=== PATIENT | female | born 1960 | race Caucasian/White ===

== ENCOUNTER 2016-09-18 21:28 | Outpatient (CLI) | payer MEDICAID | END 2016-09-18 21:29 | disposition critical access hospital (66) | DX: R07.9 Chest pain, unspecified (principal) | CPT/HCPCS: A0425; A0427 ==

== ENCOUNTER 2016-09-18 21:49 | Emergency (ER) | payer MEDICAID | END 2016-09-19 02:12 | disposition home or self-care (01) | DX: R07.9 Chest pain, unspecified (principal); J44.9 Chronic obstructive pulmonary disease, unspecified; J45.909 Unspecified asthma, uncomplicated; I10 Essential (primary) hypertension; K21.9 Gastro-esophageal reflux disease without esophagitis; G40.909 Epilepsy, unspecified, not intractable, without status epilepticus; F17.200 Nicotine dependence, unspecified, uncomplicated ==

== ENCOUNTER 2016-11-21 23:06 | Outpatient (CLI) | payer MEDICAID | END 2016-11-21 23:07 | disposition critical access hospital (66) | LOC: EMS 23:06 | PROVIDERS: ATTEND Surgery | DX: R52 Pain, unspecified (principal) | CPT/HCPCS: A0425; A0429 ==

== ENCOUNTER 2016-11-21 23:24 | Emergency (ER) | payer MEDICAID ==
--- NOTE | 2016-11-21 23:45 | ED Physician Documentation ---
PD HPI MHE - Stated complaint Stated Complaint: SI - Chief complaint Chief Complaint: MHE - History obtained from History obtained from: Patient - History of Present Illness Primary symptom: Suicidal ideation, Suicide attempt (she had tied a sheet up to half-way bar and was putting her head into the loop when noticed by gambling dealer and stopped. She did not actually get suspended hanging per patient. She is not sure is she still feels suicidal. She had been picked up on a warrant and was just in half-way starting today. She denies alcohol nor drugs. She says she has been taking her usual medications except for Prilosec that she ran out of.) Timing - onset: How many minutes ago (30), Today Contributing factors: Legal (was arrested on a warrant today and has a court appearance tomorrow. She lives in a long term and has been having poor social interactions.), Other (she says also tired of chronic neck and back pains.). No : Substance abuse - ETOH, Substance abuse - drugs Similar symptoms before: Diagnosis (suicidal ideation often, but not had attempts/actions for couple of years (2014 ED visit for attempting to hang herself with a sheet per old records).) Recently seen: Clinic (she says she sees counselor at [facility] regularly but had been few weeks since last visit.) Review of Systems Constitutional: denies: Fever Nose: denies: Rhinorrhea / runny nose, Congestion Throat: denies: Sore throat Cardiac: denies: Chest pain / pressure Respiratory: denies: Dyspnea, Cough GI: reports: Abdominal Pain (intermittent heart burn and gassiness.). denies: Vomiting, Diarrhea, Bloody / black stool Skin: denies: Abrasion (s), Laceration (s) Musculoskeletal: reports: Neck pain (chronic) Neurologic: reports: Headache (having headache today and has complaint of chronic neck pain.). denies: Focal weakness, Numbness, Altered mental status, LOC Psychiatric: reports: Depressed, Suicidal. denies: Homicidal, Hallucinations, Delusions, Anxiety Endocrine: denies: Weight loss Immunocompromised: denies: Immunocompromised PD PAST MEDICAL HISTORY - Past Medical History Cardiovascular: Hypertension Respiratory: Asthma Neuro: Headache/migraine, Seizure disorder Endocrine/Autoimmune: None GI: GERD MECHANIC FIELD SERVICE: None : None HEENT: None Psych: Depression, Anxiety, Post traumatic stress disorder Musculoskeletal: Chronic back pain Derm: None - Past Surgical History Past Surgical History: Yes /MECHANIC FIELD SERVICE: Tubal ligation HEENT: Tonsil/Adenoidectomy - Present Medications Home Medications: Ambulatory Orders Medication Instructions Recorded Confirmed Mirtazapine 45 mg PO HS 10/20/12 11/18/15 lamoTRIgine [LaMICtal] 100 mg PO DAILY 10/20/12 11/18/15 Hydroxyzine HCl 50 mg PO TID PRN 04/24/15 11/18/15 clonazePAM [KlonoPIN] 1 mg PO QPM 04/26/15 11/18/15 HYDROcod/ACETAM 5/325 [[place] 5/325] 1 - 2 ea PO Q6H PRN #10 tablet 11/18/15 Omeprazole 40 mg PO DAILY 11/18/15 11/18/15 carBAMazepine [TEGretol] 200 mg PO BID 11/18/15 11/18/15 - Allergies Allergies/Adverse Reactions: Allergies Allergy/AdvReac Type Severity Reaction Status Date / Time lithium [[place]] Allergy Mild Rash Verified 11/21/16 23:29 Penicillins Allergy Mild Rash Verified 11/21/16 23:29 codeine Allergy Unknown Verified 11/21/16 23:29 - Social History Does the pt smoke?: Yes Smoking Status: Current every day smoker Does the pt drink ETOH?: No Does the pt have substance abuse?: Yes - Immunizations Immunizations are current?: No - POLST Patient has POLST: No PD ED PE NORMAL - Vitals Vital signs reviewed: Yes - General General: Alert and oriented X 3, Well developed/nourished - HEENT HEENT: Atraumatic, PERRL (very light sensitive. ), Pharynx benign, Other ( normal voice) - Neck Neck: Supple, no meningeal sign, No bony TTP, No adenopathy - Cardiac Cardiac: RRR, No murmur - Respiratory Respiratory: Clear bilaterally - Abdomen Abdomen: Normal bowel sounds, Soft, Non distended, Other (mild tenderness epigastric area without guarding nor percussion tenderness) - Female Female : Deferred - Rectal Rectal: Deferred - Derm Derm: Normal color, Warm and dry - Extremities Extremities: No deformity, No tenderness to palpate, Normal ROM s pain, No edema - Neuro Neuro: Alert and oriented X 3, home care scheduler 2-12 intact, No motor deficit, No sensory deficit, Normal speech - Psych Psych: No: Normal mood (sad, somewhat anxious. Does not know if she is still suicidal. ) Results - Vitals Vitals: Vital Signs - 24 hr 11/21/16 11/22/16 23:25 04:28 Temperature 36.8 C Heart Rate 73 68 Respiratory 16 18 Rate Blood Pressure 131/81 H 139/74 H O2 Saturation 100 96 Oxygen O2 Source Room air - Labs Labs: Laboratory Tests 11/22/16 11/22/16 11/22/16 00:05 00:05 00:05 WBC 6.6 RBC 4.47 Hgb 13.5 Hct 39.3 MCV 87.8 MCH 30.2 MCHC 34.4 RDW 13.4 Plt Count 259 MPV 6.9 L Neut # 3.5 Lymph # 2.4 [place] # 0.6 Eos # 0.1 Baso # 0.0 Absolute Nucleated RBC 0.00 Nucleated RBCs 0.0 Sodium 141 Potassium 3.7 Chloride 105 Carbon Dioxide 27 Anion Gap 9.0 BUN 8 Creatinine 0.6 Estimated GFR (MDRD) 103 Glucose 99 Calcium 9.7 Total Bilirubin 0.5 AST 18 ALT 15 Alkaline Phosphatase 83 Total Protein 7.0 Albumin 4.3 Globulin 2.7 Albumin/Globulin Ratio 1.6 Lipase 130 H TSH 8.02 H Urine Color Urine Clarity Urine pH Ur Specific [place] Urine Protein Urine Glucose (UA) Urine Ketones Urine Occult Blood Urine Nitrite Urine Bilirubin Urine Urobilinogen Ur Leukocyte Esterase Ur Microscopic Review Urine Culture Comments Salicylates < 6.0 Urine Opiates Screen Ur Oxycodone Screen Urine Methadone Screen Ur Propoxyphene Screen Acetaminophen < 10 L Ur Barbiturates Screen Ur Tricyclics Screen Ur Phencyclidine Scrn Ur Amphetamine Screen U Methamphetamines Scrn U Benzodiazepines Scrn Urine Cocaine Screen U Cannabinoids Screen Ethyl Alcohol < 5.0 11/22/16 00:05 WBC RBC Hgb Hct MCV MCH MCHC RDW Plt Count MPV Neut # Lymph # [place] # Eos # Baso # Absolute Nucleated RBC Nucleated RBCs Sodium Potassium Chloride Carbon Dioxide Anion Gap BUN Creatinine Estimated GFR (MDRD) Glucose Calcium Total Bilirubin AST ALT Alkaline Phosphatase Total Protein Albumin Globulin Albumin/Globulin Ratio Lipase TSH Urine Color YELLOW Urine Clarity CLEAR Urine pH 7.0 Ur Specific [place] 1.010 Urine Protein NEGATIVE Urine Glucose (UA) NEGATIVE Urine Ketones NEGATIVE Urine Occult Blood NEGATIVE Urine Nitrite NEGATIVE Urine Bilirubin NEGATIVE Urine Urobilinogen 0.2 (NORMAL) Ur Leukocyte Esterase NEGATIVE Ur Microscopic Review NOT INDICATED Urine Culture Comments NOT INDICATED Salicylates Urine Opiates Screen NEGATIVE Ur Oxycodone Screen NEGATIVE Urine Methadone Screen NEGATIVE Ur Propoxyphene Screen NEGATIVE Acetaminophen Ur Barbiturates Screen NEGATIVE Ur Tricyclics Screen NEGATIVE Ur Phencyclidine Scrn NEGATIVE Ur Amphetamine Screen NEGATIVE U Methamphetamines Scrn NEGATIVE U Benzodiazepines Scrn NEGATIVE Urine Cocaine Screen NEGATIVE U Cannabinoids Screen POSITIVE H Ethyl Alcohol PD MEDICAL DECISION MAKING - ED course Complexity details: reviewed old records, considered differential (she does have history of depression, suicidal ideation and prior attempts. She is not able to say if she feels still suicidal and has poor social support. Contacted [facility] and they wanted her IOP education associate counselor contacted. The education associate IOP counselor deferred it to [facility] education associate. [facility] re-contacted and they will dispatch [facility]. She was having headache here and so given PO meds for headache, and aslo Mylanta/Famotidine for stomach pain/gas. ), d/w patient, d/w information security consultant (ASH Cabrera, came to ED and talked with patient. [place] to be not at risk of suicide at this time. Has appt with IOP counselor later this morning. ) Departure - Departure Disposition: 01 Home, Self Care Clinical Impression: Suicidal ideation, Headache Suicide gesture Qualifiers: Encounter type: initial encounter Qualified Code(s): X83.8XXA - Intentional self-harm by other specified means, initial encounter Depression Qualifiers: Depression Type: major depressive disorder Major depression recurrence: recurrent Active/Remission status: currently active Major depression episode severity: moderate Qualified Code(s): F33.1 - Major depressive disorder, recurrent, moderate Condition: Stable Record reviewed to determine appropriate education?: Yes Instructions: ED Contract No Harm, ED Depression Comments: Continue usual medications. See your IOP counselor later this morning as planned. Discharge Date/Time: 11/22/16 04:42
[2016-11-22] MEDS ORDERED: HYDROcod/ACETAM 5/325 MG TABLET PO STA (00:07)
[2016-11-22] MEDS ORDERED: MAG HYDROX/AL HYDROX/SIMETH 30 ML UDC PO STA (00:07)
[2016-11-22] MEDS ORDERED: FAMOTIDINE 20 MG TABLET PO STA (00:07)
[2016-11-22] MEDS ORDERED: ONDANSETRON ODT 4 MG TABLET TL STA (00:07)
[2016-11-22] MEDS ORDERED: HYDROcod/ACETAM 5/325 MG TABLET ONE (00:11)
[2016-11-22] MEDS ORDERED: ONDANSETRON ODT 4 MG TABLET ONE (00:11)
[2016-11-22] MEDS ORDERED: FAMOTIDINE 20 MG TABLET ONE (00:11)
[2016-11-22] MEDS ORDERED: MAG HYDROX/AL HYDROX/SIMETH 30 ML UDC ONE (00:12)
[2016-11-22 00:16] LABS: BASOPHILS % (AUTO) 0.6 %; EOSINOPHILS # (AUTO) 0.1 10^3/uL (0.0-0.7); EOSINOPHILS % (AUTO) 1.3 %; HCT - HEMATOCRIT 39.3 % (37.0-47.0); HGB - HEMOGLOBIN 13.5 g/dL (12.0-16.0); LYMPHOCYTES # (AUTO) 2.4 10^3/uL (1.5-3.5); LYMPHOCYTES % (AUTO) 36.5 %; MEAN CORPUSCULAR HEMOGLOBIN 30.2 pg (27.0-31.0); MEAN CORPUSCULAR HGB CONC 34.4 g/dL (32.0-36.0); MEAN CORPUSCULAR VOLUME 87.8 fL (81.0-99.0); MEAN PLATELET VOLUME 6.9 fL (7.9-10.8); MONOCYTES # (AUTO) 0.6 10^3/uL (0.0-1.0); MONOCYTES % (AUTO) 8.6 %; NEUTROPHILS # (AUTO) 3.5 10^3/uL (1.5-6.6); RED BLOOD COUNT 4.47 10^6/uL (4.20-5.40); RED CELL DISTRIBUTION WIDTH 13.4 % (12.0-15.0); UNCORRECTED WHITE BLOOD COUNT 6.6 x10^3/uL; WHITE BLOOD COUNT 6.6 x10^3/uL (4.8-10.8)
[2016-11-22 00:28] LABS: BILIRUBIN,URINE NEGATIVE (NEGATIVE)
[2016-11-22 00:36] LABS: ALBUMIN/GLOBULIN RATIO 1.6 (1.0-2.2); BILIRUBIN,TOTAL 0.5 mg/dL (0.2-1.0); BUN - BLOOD UREA NITROGEN 8 mg/dL (6-20); CALCIUM 9.7 mg/dL (8.5-10.3); CARBON DIOXIDE - CO2 27 mmol/L (21-32); CHLORIDE 105 mmol/L (101-111); CREATININE 0.6 mg/dL (0.4-1.0); GFR - MDRD 103 (>89); GLUCOSE 99 mg/dL (70-100); LIPASE 130 U/L (22-51); POTASSIUM 3.7 mmol/L (3.5-5.0); SALICYLATE < 6.0 mg/dL; SODIUM 141 mmol/L (135-145); UA CHARGE (STRIP ONLY) YES; UR CULTURE IF IND NOT INDICATED
[2016-11-22 00:52] LABS: ACETAMINOPHEN < 10 ug/mL (10-30)
[2016-11-22 04:29] VITALS: BP 139/74
[2016-11-22] MEDS ORDERED: LORazepam 0.5 MG TABLET PO STA (04:29)
[2016-11-22] MEDS ORDERED: LORazepam 0.5 MG TABLET ONE (04:30)
== END 2016-11-22 04:42 | disposition home or self-care (01) ==
LOC: EDUNIT# → ED 23:24 → SUPCPDRO 23:24 → ED 11-22 04:29
DX: R45.851 Suicidal ideations (principal); R51 Headache; R10.9 Unspecified abdominal pain; R14.3 Flatulence; F33.1 Major depressive disorder, recurrent, moderate; I10 Essential (primary) hypertension; F17.200 Nicotine dependence, unspecified, uncomplicated; M54.2 Cervicalgia; G89.29 Other chronic pain; F41.9 Anxiety disorder, unspecified; F43.10 Post-traumatic stress disorder, unspecified; K21.9 Gastro-esophageal reflux disease without esophagitis; G40.909 Epilepsy, unspecified, not intractable, without status epilepticus; Z60.9 Problem related to social environment, unspecified; Z91.5 Personal history of self-harm
CPT/HCPCS: 36415; 80053; 80306; 80307; 80320; 80329; 81003; 83690; 84443; 85025; 99283; 99284; A9270; Q0162; 81001; 87086

== ENCOUNTER 2018-01-07 16:05 | Outpatient (CLI) | payer MEDICAID | END 2018-01-07 16:06 | disposition critical access hospital (66) | LOC: EMS 16:05 | PROVIDERS: ATTEND Surgery | DX: R45.851 Suicidal ideations (principal) | CPT/HCPCS: A0425; A0429; A0999 ==

== ENCOUNTER 2018-01-07 16:22 | Emergency (ER) | payer MEDICAID ==
--- NOTE | 2018-01-07 16:34 | ED Physician Documentation ---
PD HPI MHE - Stated complaint Stated Complaint: SI - History obtained from History obtained from: Patient, EMS - History of Present Illness Primary symptom: Suicide attempt (She got jailed today on a [place] and [facility] [place] [facility] [place] she [place] [facility] she tried to hang herself but was per her description barely hanging at all before they got her down. She has no injuries and feels okay now. Per report from EMS they have released her from incarceration at this point. No alcohol or drug use today.) Review of Systems Ten Systems: 10 systems reviewed and negative Constitutional: reports: Reviewed and negative Throat: reports: Reviewed and negative Cardiac: reports: Reviewed and negative Respiratory: reports: Reviewed and negative PD PAST MEDICAL HISTORY - Past Medical History Cardiovascular: Hypertension Respiratory: Asthma Endocrine/Autoimmune: None GI: GERD [employer] SOLUTION ARCHITECT: None : None HEENT: None Psych: Depression, Anxiety, Post traumatic stress disorder Musculoskeletal: Chronic back pain Derm: None - Past Surgical History Past Surgical History: Yes /[facility] SOLUTION ARCHITECT: Tubal ligation HEENT: Tonsil/Adenoidectomy - Present Medications Home Medications: Ambulatory Orders Medication Instructions Recorded Confirmed Mirtazapine 45 mg PO HS 10/20/12 11/18/15 lamoTRIgine [LaMICtal] 100 mg PO DAILY 10/20/12 11/18/15 Hydroxyzine HCl 50 mg PO TID PRN 04/24/15 11/18/15 clonazePAM [KlonoPIN] 1 mg PO QPM 04/26/15 11/18/15 HYDROcod/ACETAM 5/325 [[place] 5/325] 1 - 2 ea PO Q6H PRN #10 tablet 11/18/15 Omeprazole 40 mg PO DAILY 11/18/15 11/18/15 carBAMazepine [TEGretol] 200 mg PO BID 11/18/15 11/18/15 - Allergies Allergies/Adverse Reactions: Allergies Allergy/AdvReac Type Severity Reaction Status Date / Time lithium [[place]] Allergy Mild Rash Verified 01/07/18 16:36 Penicillins Allergy Mild Rash Verified 01/07/18 16:36 codeine Allergy Unknown Verified 01/07/18 16:36 - Social History Does the pt smoke?: Yes Smoking Status: Current every day smoker Does the pt drink ETOH?: No Does the pt have substance abuse?: Yes - Family History Family history: reports: Non contributory - Immunizations Immunizations are current?: No - POLST Patient has POLST: No PD ED PE NORMAL - Vitals Vital signs reviewed: Yes - General General: Alert and oriented X 3, No acute distress - HEENT HEENT: PERRL, EOMI - Neck Neck: Supple, no meningeal sign, No bony TTP, No bruit - Cardiac Cardiac: RRR, No murmur - Respiratory Respiratory: No respiratory distress, Clear bilaterally - Abdomen Abdomen: Non tender - Derm Derm: Other (Multiple old healing self-inflicted lacerations, none appear recent.) - Extremities Extremities: No deformity, No tenderness to palpate, Normal ROM s pain - Neuro Neuro: Alert and oriented X 3 Eye Opening: Spontaneous Motor: Obeys Commands Verbal: Oriented GCS Score: 15 - Psych Psych: Normal mood, Normal affect Results - Vitals Vitals: Vital Signs - 24 hr 01/07/18 16:31 Temperature 37.1 C Heart Rate 78 Respiratory 20 Rate Blood Pressure 152/95 H O2 Saturation 98 Oxygen O2 Source Room air - Labs Labs: Laboratory Tests 01/07/18 01/07/18 01/07/18 16:35 16:55 16:55 WBC 9.1 RBC 4.54 Hgb 14.3 Hct 41.4 MCV 91.0 MCH 31.5 H MCHC 34.6 RDW 13.9 Plt Count 218 MPV 8.0 Neut # (Auto) 6.2 Lymph # (Auto) 2.2 [place] # (Auto) 0.6 Eos # (Auto) 0.0 Baso # (Auto) 0.1 Absolute Nucleated RBC 0.01 Nucleated RBC % 0.1 Manual Slide Review Indicated WBC Morphology NORMAL APPEARANCE Platelet Estimate NORMAL (130-450,000) Platelet Morphology PLATELET CLUMPING RBC Morph Micro Appear NORMAL APPEARANCE Sodium 140 Potassium 3.8 Chloride 106 Carbon Dioxide 25 Anion Gap 9.0 BUN 7 Creatinine 0.6 Estimated GFR (MDRD) 103 Glucose 92 Calcium 9.3 Total Bilirubin 0.6 AST 18 ALT 11 Alkaline Phosphatase 71 Total Protein 7.0 Albumin 4.3 Globulin 2.7 Albumin/Globulin Ratio 1.6 Lipase 31 TSH Salicylates < 6.0 Urine Opiates Screen NEGATIVE Ur Oxycodone Screen NEGATIVE Urine Methadone Screen NEGATIVE Ur Propoxyphene Screen NEGATIVE Acetaminophen < 10 L Ur Barbiturates Screen NEGATIVE Ur Tricyclics Screen NEGATIVE Ur Phencyclidine Scrn NEGATIVE Ur Amphetamine Screen NEGATIVE U Methamphetamines Scrn NEGATIVE U Benzodiazepines Scrn NEGATIVE Urine Cocaine Screen NEGATIVE U Cannabinoids Screen POSITIVE H Ethyl Alcohol < 5.0 01/07/18 16:55 WBC RBC Hgb Hct MCV MCH MCHC RDW Plt Count MPV Neut # (Auto) Lymph # (Auto) [place] # (Auto) Eos # (Auto) Baso # (Auto) Absolute Nucleated RBC Nucleated RBC % Manual Slide Review WBC Morphology Platelet Estimate Platelet Morphology RBC Morph Micro Appear Sodium Potassium Chloride Carbon Dioxide Anion Gap BUN Creatinine Estimated GFR (MDRD) Glucose Calcium Total Bilirubin AST ALT Alkaline Phosphatase Total Protein Albumin Globulin Albumin/Globulin Ratio Lipase TSH 6.98 H Salicylates Urine Opiates Screen Ur Oxycodone Screen Urine Methadone Screen Ur Propoxyphene Screen Acetaminophen Ur Barbiturates Screen Ur Tricyclics Screen Ur Phencyclidine Scrn Ur Amphetamine Screen U Methamphetamines Scrn U Benzodiazepines Scrn Urine Cocaine Screen U Cannabinoids Screen Ethyl Alcohol PD MEDICAL DECISION MAKING - ED course ED course: She was suicidal in detail but has since been released from custody and says she is not suicidal now. She was seen by the social media senior associate who agrees and will try to find respite care for her. - Sepsis Event Vital Signs: Vital Signs - 24 hr 01/07/18 16:31 Temperature 37.1 C Heart Rate 78 Respiratory 20 Rate Blood Pressure 152/95 H O2 Saturation 98 Oxygen O2 Source Room air Departure - Departure Disposition: 01 Home, Self Care Clinical Impression: Depression Qualifiers: Depression Type: major depressive disorder Major depression recurrence: recurrent Active/Remission status: currently active Major depression episode severity: moderate Qualified Code(s): F33.1 - Major depressive disorder, recurrent, moderate Condition: Good Record reviewed to determine appropriate education?: Yes Instructions: ED Depression Comments: Your blood pressure was elevated today on check into the emergency department. This does not mean that you have hypertension, it is a common phenomenon to come to the emergency department and have elevated blood pressure. I recommend that you see your primary care physician within the week to have it rechecked when you are feeling better. Discharge Date/Time: 01/07/18 18:17
[2018-01-07 16:35] VITALS: BP 152/95
[2018-01-07 17:02] LABS: MUDS CUTOFF CONCENTRATIONS CUTOFF CONC BELOW:
[2018-01-07 17:05] LABS: BASOPHILS # (AUTO) 0.1 10^3/uL (0.0-0.1); BASOPHILS % (AUTO) 0.7 %; EOSINOPHILS % (AUTO) 0.5 %; HGB - HEMOGLOBIN 14.3 g/dL (12.0-16.0); LYMPHOCYTES # (AUTO) 2.2 10^3/uL (1.5-3.5); MEAN CORPUSCULAR HEMOGLOBIN 31.5 pg (27.0-31.0); MEAN CORPUSCULAR HGB CONC 34.6 g/dL (32.0-36.0); MONOCYTES # (AUTO) 0.6 10^3/uL (0.0-1.0); MONOCYTES % (AUTO) 6.9 %; NEUTROPHILS # (AUTO) 6.2 10^3/uL (1.5-6.6); NEUTROPHILS % (AUTO) 67.9 %; PLT - PLATELET COUNT 218 10^3/uL (130-450); RED BLOOD COUNT 4.54 10^6/uL (4.20-5.40); RED CELL DISTRIBUTION WIDTH 13.9 % (12.0-15.0); WHITE BLOOD COUNT 9.1 x10^3/uL (4.8-10.8)
[2018-01-07 17:15] LABS: AMPHETAMINE SCREEN,URINE NEGATIVE (NEGATIVE); BENZODIAZEPINES SCREEN, URINE NEGATIVE (NEGATIVE); COCAINE SCREEN URINE NEGATIVE (NEGATIVE); METHADONE SCREEN, URINE NEGATIVE (NEGATIVE); METHAMPHETAMINES SCREEN, URINE NEGATIVE (NEGATIVE); OPIATE SCREEN, URINE NEGATIVE (NEGATIVE); OXYCODONE SCREEN, URINE NEGATIVE (NEGATIVE); PROPOXYPHENE SCREEN, URINE NEGATIVE (NEGATIVE); TRICYCLIC ANTIDEPRESSANT,URINE NEGATIVE (NEGATIVE)
[2018-01-07 17:24] LABS: PLATELET ESTIMATE, MANUAL NORMAL (130-450,000) (NORMAL); PLATELET MORPHOLOGY PLATELET CLUMPING (NORMAL); RBC MORPHOLOGY (MULTIPLE) NORMAL APPEARANCE (NORMAL)
[2018-01-07 17:32] LABS: ALBUMIN 4.3 g/dL (3.2-5.5); ALBUMIN/GLOBULIN RATIO 1.6 (1.0-2.2); ALKALINE PHOSPHATASE 71 IU/L (42-121); ALT ALANINE AMINOTRANSFERASE 11 IU/L (10-60); AST ASPARTATE AMINOTRANSFERASE 18 IU/L (10-42); BILIRUBIN,TOTAL 0.6 mg/dL (0.2-1.0); BUN - BLOOD UREA NITROGEN 7 mg/dL (6-20); CALCIUM 9.3 mg/dL (8.5-10.3); CARBON DIOXIDE - CO2 25 mmol/L (21-32); CHLORIDE 106 mmol/L (101-111); CREATININE 0.6 mg/dL (0.4-1.0); GFR - MDRD 103 (>89); GLUCOSE 92 mg/dL (70-100); LIPASE 31 U/L (22-51); SALICYLATE < 6.0 mg/dL; SODIUM 140 mmol/L (135-145)
[2018-01-07 17:34] LABS: ACETAMINOPHEN < 10 ug/mL (10-30)
== END 2018-01-07 18:17 | disposition home or self-care (01) ==
LOC: EDUNIT# → EDSEX → ED 16:22
DX: F33.1 Major depressive disorder, recurrent, moderate (principal); I10 Essential (primary) hypertension; F17.200 Nicotine dependence, unspecified, uncomplicated
CPT/HCPCS: 36415; 80053; 80306; 80307; 80320; 80329; 83690; 84443; 85025; 99283

== ENCOUNTER 2018-01-12 14:53 | Outpatient (CLI) | payer MEDICAID ==
[2018-01-12 15:17] LABS: AMPHETAMINE SCREEN,URINE NEGATIVE (NEGATIVE); BENZODIAZEPINES SCREEN, URINE POSITIVE (NEGATIVE); COCAINE SCREEN URINE NEGATIVE (NEGATIVE); METHADONE SCREEN, URINE NEGATIVE (NEGATIVE); METHAMPHETAMINES SCREEN, URINE NEGATIVE (NEGATIVE); MUDS CUTOFF CONCENTRATIONS CUTOFF CONC BELOW:; OPIATE SCREEN, URINE NEGATIVE (NEGATIVE); OXYCODONE SCREEN, URINE NEGATIVE (NEGATIVE); PROPOXYPHENE SCREEN, URINE NEGATIVE (NEGATIVE); TRICYCLIC ANTIDEPRESSANT,URINE NEGATIVE (NEGATIVE)
== END 2018-01-12 14:54 | disposition home or self-care (01) ==
LOC: LAB 14:53
PROVIDERS: ATTEND Obstetrics & Gynecology
DX: F33.2 Major depressive disorder, recurrent severe without psychotic features (principal)
CPT/HCPCS: 80306

== ENCOUNTER 2018-03-13 23:06 | Outpatient (CLI) | payer MEDICAID | END 2018-03-13 23:07 | disposition critical access hospital (66) | LOC: EMS 23:06 | PROVIDERS: ATTEND Surgery | DX: T42.4X2A Poisoning by benzodiazepines, intentional self-harm, initial encounter (principal) | CPT/HCPCS: A0425; A0429; A0999 ==

== ENCOUNTER 2018-03-13 23:22 | Emergency (ER) | payer MEDICAID ==
--- NOTE | 2018-03-13 23:32 | ED Physician Documentation ---
PD HPI MHE - Stated complaint Stated Complaint: MHE - Chief complaint Chief Complaint: MHE - History obtained from History obtained from: Patient, EMS - History of Present Illness Primary symptom: Suicide attempt Timing - onset: How many hours ago (2) Pain level max: 0 Pain level now: 0 - Additional information Additional information: Patient is a 57-year-old female who states she was trying to kill herself tonight. She took 10 mg of clonazepam approximately 2 hours ago. States she feels tired now. States that she still feels suicidal. Has been using marijuana heavily tonight as well. Has a long history of depression. She denies any other ingestions at this time. Review of Systems Ten Systems: 10 systems reviewed and negative Constitutional: denies: Fever, Chills Ears: denies: Ear pain Nose: denies: Rhinorrhea / runny nose, Congestion Cardiac: denies: Chest pain / pressure Respiratory: denies: Cough GI: denies: Abdominal Pain, Nausea, Vomiting, Diarrhea Skin: denies: Rash Musculoskeletal: denies: Neck pain, Back pain Neurologic: denies: Focal weakness, Numbness, Headache PD PAST MEDICAL HISTORY - Past Medical History Cardiovascular: Hypertension Respiratory: Asthma Endocrine/Autoimmune: None GI: GERD AUTOMOTIVE PARTS SPECIALIST: None : None HEENT: None Psych: Depression, Anxiety, Post traumatic stress disorder Musculoskeletal: Chronic back pain Derm: None - Past Surgical History Past Surgical History: Yes /AUTOMOTIVE PARTS SPECIALIST: Tubal ligation HEENT: Tonsil/Adenoidectomy - Present Medications Home Medications: Ambulatory Orders Medication Instructions Recorded Confirmed Mirtazapine 45 mg PO HS 10/20/12 11/18/15 lamoTRIgine [LaMICtal] 100 mg PO DAILY 10/20/12 11/18/15 Hydroxyzine HCl 50 mg PO TID PRN 04/24/15 11/18/15 clonazePAM [KlonoPIN] 1 mg PO QPM 04/26/15 11/18/15 HYDROcod/ACETAM 5/325 [[place] 5/325] 1 - 2 ea PO Q6H PRN #10 tablet 11/18/15 Omeprazole 40 mg PO DAILY 11/18/15 11/18/15 carBAMazepine [TEGretol] 200 mg PO BID 11/18/15 11/18/15 - Allergies Allergies/Adverse Reactions: Allergies Allergy/AdvReac Type Severity Reaction Status Date / Time lithium [[place]] Allergy Mild Rash Verified 03/13/18 23:34 Penicillins Allergy Mild Rash Verified 03/13/18 23:34 codeine Allergy Unknown Verified 03/13/18 23:34 - Social History Does the pt smoke?: Yes Smoking Status: Current every day smoker Does the pt drink ETOH?: No Does the pt have substance abuse?: Yes - Immunizations Immunizations are current?: No - POLST Patient has POLST: No PD ED PE NORMAL - Vitals Vital signs reviewed: Yes - General General: Alert and oriented X 3, No acute distress, Well developed/nourished, Other (Smells heavily of marijuana) - HEENT HEENT: PERRL, Moist mucous membranes, Pharynx benign - Neck Neck: Supple, no meningeal sign - Cardiac Cardiac: RRR, Strong equal pulses - Respiratory Respiratory: No respiratory distress, Clear bilaterally - Abdomen Abdomen: Soft, Non tender, Non distended - Back Back: No spinal TTP - Derm Derm: Warm and dry, Other (Old cut [place] to the forearms) - Extremities Extremities: No deformity, No tenderness to palpate - Neuro Neuro: Alert and oriented X 3 - Psych Psych: Other (Patient with labile mood, occasionally stating that she is very tired and trying to fall asleep, then awakes and is perseverating on singular ideas such as having to urinate) Results - Vitals Vitals: Oxygen O2 Source Room air - EKG (time done) 2353 Rate: Rate (enter#) (66) Rhythm: NSR [place]: Normal Intervals: Normal [place] QRS: Normal Ischemia: Normal ST segments PD MEDICAL DECISION MAKING - ED course Complexity details: reviewed results, re-evaluated patient, considered differential, d/w patient ED course: Patient is a 57-year-old female who presents to the emergency department after trying to overdose and kill herself with 10 mg of clonazepam. She was very intoxicated with marijuana. Allowed to sober in the emergency department and is clear for psychiatric care. Social work consulted and patient turned over to oncoming emergency department physician. This document was made in part using voice recognition software. While efforts are made to proofread this document, sound alike and grammatical errors may occur. - Sepsis Event Vital Signs: Oxygen O2 Source Room air Departure - Departure Clinical Impression: Suicidal overdose Qualifiers: Encounter type: initial encounter Qualified Code(s): T50.902A - Poisoning by unspecified drugs, medicaments and biological substances, intentional self-harm, initial encounter Condition: Stable
[2018-03-13 23:48] LABS: BASOPHILS # (AUTO) 0.1 10^3/uL (0.0-0.1); BASOPHILS % (AUTO) 1.2 %; EOSINOPHILS # (AUTO) 0.2 10^3/uL (0.0-0.7); EOSINOPHILS % (AUTO) 2.8 %; HGB - HEMOGLOBIN 13.2 g/dL (12.0-16.0); LYMPHOCYTES % (AUTO) 30.7 %; MEAN CORPUSCULAR HEMOGLOBIN 33.4 pg (27.0-31.0); MEAN CORPUSCULAR VOLUME 92.6 fL (81.0-99.0); MONOCYTES # (AUTO) 0.5 10^3/uL (0.0-1.0); MONOCYTES % (AUTO) 7.6 %; NEUTROPHILS # (AUTO) 3.8 10^3/uL (1.5-6.6); NEUTROPHILS % (AUTO) 57.7 %; PLT - PLATELET COUNT 258 10^3/uL (130-450); RED BLOOD COUNT 3.95 10^6/uL (4.20-5.40); RED CELL DISTRIBUTION WIDTH 13.1 % (12.0-15.0); WHITE BLOOD COUNT 6.6 x10^3/uL (4.8-10.8)
[2018-03-13 23:51] LABS: MUDS CUTOFF CONCENTRATIONS CUTOFF CONC BELOW:
[2018-03-13 23:53] LABS: BILIRUBIN,URINE NEGATIVE (NEGATIVE); GLUCOSE, URINE (UA) NEGATIVE (NEGATIVE); KETONES,URINE (UA) NEGATIVE (NEGATIVE); LEUKOCYTE ESTERASE, URINE TRACE (NEGATIVE); NITRITE,URINE NEGATIVE (NEGATIVE); OCCULT BLOOD,URINE NEGATIVE (NEGATIVE); PH,URINE 5.5 PH (5.0-7.5); PROTEIN,URINE NEGATIVE (NEGATIVE); UROBILINOGEN,URINE 0.2 (NORMAL) E.U./dL (NORMAL)
[2018-03-13 23:55] LABS: CLARITY,URINE CLEAR (CLEAR)
[2018-03-14 00:01] LABS: BACTERIA,URINE Few /HPF (None Seen); RBC,URINE 0-5 /HPF (0-5); SQUAMOUS EPITHELIAL CELL,UR MOD Squamous (<= Few)
[2018-03-14 00:03] LABS: ALBUMIN 4.1 g/dL (3.2-5.5); ALBUMIN/GLOBULIN RATIO 1.8 (1.0-2.2); ALKALINE PHOSPHATASE 78 IU/L (42-121); ALT ALANINE AMINOTRANSFERASE 15 IU/L (10-60); AST ASPARTATE AMINOTRANSFERASE 20 IU/L (10-42); BILIRUBIN,TOTAL 0.5 mg/dL (0.2-1.0); BUN - BLOOD UREA NITROGEN 12 mg/dL (6-20); CALCIUM 8.8 mg/dL (8.5-10.3); CARBON DIOXIDE - CO2 29 mmol/L (21-32); CHLORIDE 107 mmol/L (101-111); CREATININE 0.5 mg/dL (0.4-1.0); GFR - MDRD 127 (>89); GLUCOSE 105 mg/dL (70-100); LIPASE 30 U/L (22-51); SALICYLATE < 6.0 mg/dL; SODIUM 141 mmol/L (135-145); TOTAL PROTEIN 6.4 g/dL (6.7-8.2)
[2018-03-14 00:05] LABS: AMPHETAMINE SCREEN,URINE NEGATIVE (NEGATIVE); BENZODIAZEPINES SCREEN, URINE NEGATIVE (NEGATIVE); COCAINE SCREEN URINE NEGATIVE (NEGATIVE); METHADONE SCREEN, URINE NEGATIVE (NEGATIVE); METHAMPHETAMINES SCREEN, URINE NEGATIVE (NEGATIVE); OPIATE SCREEN, URINE NEGATIVE (NEGATIVE); OXYCODONE SCREEN, URINE NEGATIVE (NEGATIVE); PROPOXYPHENE SCREEN, URINE NEGATIVE (NEGATIVE); TRICYCLIC ANTIDEPRESSANT,URINE NEGATIVE (NEGATIVE)
[2018-03-14 00:06] LABS: ACETAMINOPHEN < 10 ug/mL (10-30)
--- NOTE | 2018-03-14 11:42 | ED Physician Documentation ---
ED Addendum - Addendum Addendum: 03/14/18 11:41 Seen by [facility] counsellor and cleared for dischg. He will take her directly to fill her meds then to [facility] to see her [facility] clinician.
[2018-03-14 14:31] VITALS: BP 110/67
== END 2018-03-14 11:43 | disposition home or self-care (01) ==
LOC: EDUNIT# → ED 23:22
DX: T42.4X2A Poisoning by benzodiazepines, intentional self-harm, initial encounter (principal); F12.129 Cannabis abuse with intoxication, unspecified; F32.9 Major depressive disorder, single episode, unspecified; F43.10 Post-traumatic stress disorder, unspecified; I10 Essential (primary) hypertension; F17.200 Nicotine dependence, unspecified, uncomplicated
CPT/HCPCS: 36415; 80053; 80306; 80307; 80320; 80329; 81001; 81003; 83690; 85025; 87086; 93005; 99284; 99285

== ENCOUNTER 2018-08-17 18:19 | Emergency (ER) | payer MEDICAID ==
--- NOTE | 2018-08-17 18:46 | ED Physician Documentation ---
PD HPI MHE - Stated complaint Stated Complaint: SI - Chief complaint Chief Complaint: MHE - History obtained from History obtained from: Patient - History of Present Illness Primary symptom: Suicidal ideation (2 days SI with plan to jump off bridge. +Meth 3 days ago. H/O attempts in the past.) Review of Systems Ten Systems: 10 systems reviewed and negative Constitutional: reports: Reviewed and negative Throat: reports: Reviewed and negative Cardiac: reports: Reviewed and negative Respiratory: reports: Reviewed and negative PD PAST MEDICAL HISTORY - Past Medical History Cardiovascular: Hypertension Respiratory: Asthma Endocrine/Autoimmune: None GI: GERD CRATE ICER: None : None HEENT: None Psych: Depression, Anxiety, Post traumatic stress disorder Musculoskeletal: Chronic back pain Derm: None - Past Surgical History Past Surgical History: Yes /CRATE ICER: Tubal ligation HEENT: Tonsil/Adenoidectomy - Present Medications Home Medications: Ambulatory Orders Medication Instructions Recorded Confirmed Mirtazapine 45 mg PO HS 10/20/12 11/18/15 lamoTRIgine [LaMICtal] 100 mg PO DAILY 10/20/12 11/18/15 clonazePAM [KlonoPIN] 1 mg PO QPM 04/26/15 11/18/15 Mirtazapine 45 mg PO DAILY PM #7 tablet 08/18/18 lamoTRIgine [Lamictal] 100 mg PO DAILY PM #7 tablet 08/18/18 - Allergies Allergies/Adverse Reactions: Allergies Allergy/AdvReac Type Severity Reaction Status Date / Time lithium [[place]] Allergy Mild Rash Verified 03/13/18 23:34 Penicillins Allergy Mild Rash Verified 03/13/18 23:34 codeine Allergy Unknown Verified 03/13/18 23:34 - Social History Does the pt smoke?: Yes Smoking Status: Current every day smoker Does the pt drink ETOH?: No Does the pt have substance abuse?: Yes Substance Use and Type: Meth - Family History Family history: reports: Non contributory - Immunizations Immunizations are current?: No - POLST Patient has POLST: No PD ED PE NORMAL - Vitals Vital signs reviewed: Yes - General General: Alert and oriented X 3, No acute distress - HEENT HEENT: PERRL, EOMI - Neck Neck: Supple, no meningeal sign, No bony TTP - Cardiac Cardiac: RRR, No murmur - Respiratory Respiratory: No respiratory distress, Clear bilaterally - Abdomen Abdomen: Normal bowel sounds, Soft, Non tender - Back Back: No CVA TTP, No spinal TTP - Derm Derm: Normal color, Warm and dry - Extremities Extremities: No edema, No calf tenderness / cord - Neuro Neuro: Alert and oriented X 3, Normal speech - Psych Psych: Other (poor eye contact) Results - Vitals Vitals: Vital Signs - 24 hr 08/17/18 08/18/18 18:33 03:02 Temperature 36.8 C Heart Rate 86 69 Respiratory 18 20 Rate Blood Pressure 132/85 H 126/92 H O2 Saturation 97 95 Oxygen O2 Source Room air - Labs Labs: Laboratory Tests 08/17/18 08/17/18 08/17/18 18:46 18:46 18:46 WBC 6.3 RBC 4.69 Hgb 14.6 Hct 42.7 MCV 91.1 MCH 31.2 H MCHC 34.3 RDW 13.3 Plt Count 319 MPV 7.3 L Neut # (Auto) 3.5 Lymph # (Auto) 2.1 [place] # (Auto) 0.6 Eos # (Auto) 0.1 Baso # (Auto) 0.0 Absolute Nucleated RBC 0.00 Nucleated RBC % 0.1 Sodium 136 Potassium 3.8 Chloride 100 L Carbon Dioxide 27 Anion Gap 9.0 BUN 16 Creatinine 0.7 Estimated GFR (MDRD) 86 L Glucose 103 H Calcium 9.1 Total Bilirubin 1.1 H AST 25 ALT 24 Alkaline Phosphatase 86 Total Protein 7.9 Albumin 4.5 Globulin 3.4 Albumin/Globulin Ratio 1.3 Lipase 40 TSH 4.86 Urine Color Urine Clarity Urine pH Ur Specific [place] Urine Protein Urine Glucose (UA) Urine Ketones Urine Occult Blood Urine Nitrite Urine Bilirubin Urine Urobilinogen Ur Leukocyte Esterase Ur Microscopic Review Urine Culture Comments Salicylates < 6.0 Urine Opiates Screen Ur Oxycodone Screen Urine Methadone Screen Ur Propoxyphene Screen Acetaminophen < 10 L Ur Barbiturates Screen Ur Tricyclics Screen Ur Phencyclidine Scrn Ur Amphetamine Screen U Methamphetamines Scrn U Benzodiazepines Scrn Urine Cocaine Screen U Cannabinoids Screen Ethyl Alcohol < 5.0 08/17/18 22:40 WBC RBC Hgb Hct MCV MCH MCHC RDW Plt Count MPV Neut # (Auto) Lymph # (Auto) [place] # (Auto) Eos # (Auto) Baso # (Auto) Absolute Nucleated RBC Nucleated RBC % Sodium Potassium Chloride Carbon Dioxide Anion Gap BUN Creatinine Estimated GFR (MDRD) Glucose Calcium Total Bilirubin AST ALT Alkaline Phosphatase Total Protein Albumin Globulin Albumin/Globulin Ratio Lipase TSH Urine Color YELLOW Urine Clarity CLEAR Urine pH 6.0 Ur Specific [place] >=1.030 H Urine Protein TRACE Urine Glucose (UA) NEGATIVE Urine Ketones TRACE Urine Occult Blood NEGATIVE Urine Nitrite NEGATIVE Urine Bilirubin NEGATIVE Urine Urobilinogen 1 (NORMAL) Ur Leukocyte Esterase NEGATIVE Ur Microscopic Review NOT INDICATED Urine Culture Comments NOT INDICATED Salicylates Urine Opiates Screen NEGATIVE Ur Oxycodone Screen NEGATIVE Urine Methadone Screen NEGATIVE Ur Propoxyphene Screen NEGATIVE Acetaminophen Ur Barbiturates Screen NEGATIVE Ur Tricyclics Screen NEGATIVE Ur Phencyclidine Scrn NEGATIVE Ur Amphetamine Screen POSITIVE H U Methamphetamines Scrn POSITIVE H U Benzodiazepines Scrn POSITIVE H Urine Cocaine Screen NEGATIVE U Cannabinoids Screen POSITIVE H Ethyl Alcohol PD MEDICAL DECISION MAKING - ED course ED course: 57-year-old woman presents apparently high on methamphetamine with suicidal ideation. Seen overnight by tele-psychiatrist who recommended Risperdal twice daily and in the morning by social work who arranged for crisis respite bed and a safety plan. Departure - Departure Disposition: 01 Home, Self Care Clinical Impression: Psychiatric symptoms Condition: Fair Follow-Up: Mauri Garcia MD [Primary Care Provider] - Within 3 Days Prescriptions: lamoTRIgine [Lamictal] 100 mg PO DAILY PM #7 tablet Mirtazapine 45 mg PO DAILY PM #7 tablet Comments: Please go directly to the crisis center. Please take all prescriptions as prescribed. Please avoid alcohol and other recreational drugs. Please follow- up with your primary care physician and psychiatrist within 1-2 days. Return to ED sooner if experience anxiety, panic attacks, hallucinations, homicidal or suicidal thoughts or other concerns.
[2018-08-17 18:50] LABS: BASOPHILS % (AUTO) 0.7 %; EOSINOPHILS # (AUTO) 0.1 10^3/uL (0.0-0.7); EOSINOPHILS % (AUTO) 1.6 %; HGB - HEMOGLOBIN 14.6 g/dL (12.0-16.0); LYMPHOCYTES # (AUTO) 2.1 10^3/uL (1.5-3.5); LYMPHOCYTES % (AUTO) 33.1 %; MEAN CORPUSCULAR HEMOGLOBIN 31.2 pg (27.0-31.0); MEAN CORPUSCULAR HGB CONC 34.3 g/dL (32.0-36.0); MEAN CORPUSCULAR VOLUME 91.1 fL (81.0-99.0); MEAN PLATELET VOLUME 7.3 fL (7.9-10.8); MONOCYTES # (AUTO) 0.6 10^3/uL (0.0-1.0); NEUTROPHILS # (AUTO) 3.5 10^3/uL (1.5-6.6); NEUTROPHILS % (AUTO) 54.6 %; PLT - PLATELET COUNT 319 10^3/uL (130-450); RED BLOOD COUNT 4.69 10^6/uL (4.20-5.40); RED CELL DISTRIBUTION WIDTH 13.3 % (12.0-15.0); WHITE BLOOD COUNT 6.3 x10^3/uL (4.8-10.8)
[2018-08-17 19:13] LABS: ACETAMINOPHEN < 10 ug/mL (10-30); ALBUMIN 4.5 g/dL (3.2-5.5); ALBUMIN/GLOBULIN RATIO 1.3 (1.0-2.2); ALKALINE PHOSPHATASE 86 IU/L (42-121); ALT ALANINE AMINOTRANSFERASE 24 IU/L (10-60); AST ASPARTATE AMINOTRANSFERASE 25 IU/L (10-42); BILIRUBIN,TOTAL 1.1 mg/dL (0.2-1.0); BUN - BLOOD UREA NITROGEN 16 mg/dL (6-20); CALCIUM 9.1 mg/dL (8.5-10.3); CARBON DIOXIDE - CO2 27 mmol/L (21-32); CHLORIDE 100 mmol/L (101-111); GLUCOSE 103 mg/dL (70-100); LIPASE 40 U/L (22-51); SALICYLATE < 6.0 mg/dL; SODIUM 136 mmol/L (135-145); TOTAL PROTEIN 7.9 g/dL (6.7-8.2)
[2018-08-17 19:30] LABS: CREATININE 0.7 mg/dL (0.4-1.0); GFR - MDRD 86 (>89)
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
[2018-08-17 22:45] LABS: MUDS CUTOFF CONCENTRATIONS CUTOFF CONC BELOW:
[2018-08-17 22:50] LABS: GLUCOSE, URINE (UA) NEGATIVE (NEGATIVE); KETONES,URINE (UA) TRACE mg/dL (NEGATIVE); LEUKOCYTE ESTERASE, URINE NEGATIVE (NEGATIVE); NITRITE,URINE NEGATIVE (NEGATIVE); OCCULT BLOOD,URINE NEGATIVE (NEGATIVE); PROTEIN,URINE TRACE mg/dL (NEGATIVE); UROBILINOGEN,URINE 1 (NORMAL) E.U./dL (NORMAL)
[2018-08-17 23:01] LABS: BILIRUBIN,URINE NEGATIVE (NEGATIVE); CLARITY,URINE CLEAR (CLEAR); ICTOTEST,URINE NEGATIVE
[2018-08-17 23:13] LABS: COCAINE SCREEN URINE NEGATIVE (NEGATIVE)
[2018-08-17 23:14] LABS: AMPHETAMINE SCREEN,URINE POSITIVE (NEGATIVE); BENZODIAZEPINES SCREEN, URINE POSITIVE (NEGATIVE); METHADONE SCREEN, URINE NEGATIVE (NEGATIVE); METHAMPHETAMINES SCREEN, URINE POSITIVE (NEGATIVE); OPIATE SCREEN, URINE NEGATIVE (NEGATIVE); OXYCODONE SCREEN, URINE NEGATIVE (NEGATIVE); PROPOXYPHENE SCREEN, URINE NEGATIVE (NEGATIVE); TRICYCLIC ANTIDEPRESSANT,URINE NEGATIVE (NEGATIVE)
[2018-08-18] MEDS ORDERED: risperiDONE 1 MG TABLET PO STA (02:52)
[2018-08-18] MEDS ORDERED: clonazePAM 0.5 MG TABLET PO STA (02:58)
[2018-08-18 03:03] VITALS: BP 126/92
[2018-08-18] MEDS ORDERED: risperiDONE 1 MG TABLET PO SCH (09:00)
== END 2018-08-18 14:28 | disposition home or self-care (01) ==
LOC: ED 18:19
DX: F32.9 Major depressive disorder, single episode, unspecified (principal); R45.851 Suicidal ideations; F15.10 Other stimulant abuse, uncomplicated; F43.10 Post-traumatic stress disorder, unspecified; I10 Essential (primary) hypertension; F17.200 Nicotine dependence, unspecified, uncomplicated
CPT/HCPCS: 36415; 80053; 80306; 80307; 80320; 80329; 81001; 81003; 83690; 84443; 85025; 87086; 99283

== ENCOUNTER 2018-08-18 16:02 | Emergency (ER) | payer MEDICAID ==
[2018-08-18] MEDS ORDERED: diazePAM 5 MG TABLET PO STA (16:14)
--- NOTE | 2018-08-18 16:17 | ED Physician Documentation ---
PD HPI MHE - Stated complaint Stated Complaint: CP - History obtained from History obtained from: Patient - History of Present Illness Primary symptom: Suicidal ideation (This this is a 57-year-old woman that I saw last night for suicidal ideation. A plan has been formulated for her to go to a crisis respite bed and she was waiting in the waiting room for the cab to take her there. She went out to smoke some marijuana, but unfortunately her marijuana got methamphetamine on it and she smoked that. Now she feels bad... 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 : None HEENT: None Psych: Depression, Anxiety, Post traumatic stress disorder Musculoskeletal: Chronic back pain Derm: None - Past Surgical History Past Surgical History: Yes /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: Tubal ligation HEENT: Tonsil/Adenoidectomy - Present Medications Home Medications: Ambulatory Orders Medication Instructions Recorded Confirmed Mirtazapine 45 mg PO HS 10/20/12 08/18/18 lamoTRIgine [LaMICtal] 100 mg PO DAILY 10/20/12 08/18/18 clonazePAM [KlonoPIN] 1 mg PO QPM 04/26/15 08/18/18 Mirtazapine 45 mg PO DAILY PM #7 tablet 08/18/18 08/18/18 lamoTRIgine [Lamictal] 100 mg PO DAILY PM #7 tablet 08/18/18 08/18/18 - Allergies Allergies/Adverse Reactions: Allergies Allergy/AdvReac Type Severity Reaction Status Date / Time lithium [[place]] Allergy Mild Rash Verified 08/18/18 16:15 Penicillins Allergy Mild Rash Verified 08/18/18 16:15 codeine Allergy Unknown Verified 08/18/18 16:15 - Social History Does the pt smoke?: Yes Smoking Status: Current every day smoker Does the pt drink ETOH?: No Does the pt have substance abuse?: Yes - Family History Family history: reports: Non contributory - Immunizations Immunizations are current?: No - POLST Patient has POLST: No PD ED PE NORMAL - Vitals Vital signs reviewed: Yes - General General: Alert and oriented X 3, Other (He is jittery and tangential) - HEENT HEENT: PERRL, EOMI - Neck Neck: Supple, no meningeal sign, No bony TTP - Cardiac Cardiac: RRR, No murmur - Respiratory Respiratory: No respiratory distress, Clear bilaterally - Abdomen Abdomen: Normal bowel sounds, Soft, Non tender - Back Back: No CVA TTP, No spinal TTP - Derm Derm: Normal color, Warm and dry - Extremities Extremities: No edema, No calf tenderness / cord - Neuro Neuro: Alert and oriented X 3, Normal speech Results - Vitals Vitals: Vital Signs - 24 hr 08/18/18 16:05 Temperature 36.3 C L Heart Rate 86 Respiratory 22 Rate Blood Pressure 129/98 H O2 Saturation 100 Oxygen O2 Source Room air - EKG (time done) 1610 Rate: Rate (enter#) (80) Rhythm: NSR [place]: Normal Intervals: Normal CO QRS: Normal Ischemia: Non specific changes (artifact but no obvious CATALINA/STD) Computer interpretation: Agree with computer PD MEDICAL DECISION MAKING - ED course ED course: 57-year-old woman ounces back to the emergency department from the waiting room after smoking methamphetamines and she feels very bad about it kind of guilty. It seems to me that at this point given this level of disabling behavior, a crisis center respite bed is probably not a high enough level of care for her and social work is reconsulted and found her bed at [facility] and she was accepted by Dr. Lagos there and cobras were completed. They were initially concerned on the original EKG that the QTc was long, this is artifactual and it was repeated in the computer QTC was acceptable. Departure - Departure Disposition: 65 Psych Hosp/Unit DC/Xfer Clinical Impression: Depression, Methamphetamine abuse Condition: Stable
[2018-08-18 19:14] VITALS: BP 120/89
== END 2018-08-18 19:27 ==
LOC: ED 16:02
DX: F15.180 Other stimulant abuse with stimulant-induced anxiety disorder (principal); F32.9 Major depressive disorder, single episode, unspecified; R45.851 Suicidal ideations; F43.10 Post-traumatic stress disorder, unspecified; R94.31 Abnormal electrocardiogram [ECG] [EKG]; I10 Essential (primary) hypertension; F17.200 Nicotine dependence, unspecified, uncomplicated
CPT/HCPCS: 36415; 80053; 80306; 80307; 80320; 80329; 81003; 83690; 84443; 85025; 93005; 99283; 99284; A9270